=== PATIENT | female | born 1950 | race Caucasian/White ===

== ENCOUNTER 2021-07-21 11:41 | Emergency (ER) | payer MEDICARE, OTHER ==
[~2021-07-21] VITALS: Ht 162.6 cm; Wt 77.3 kg
[2021-07-21] MEDS ORDERED: KETOROLAC TROMETHAMINE 60 MG/2 ML VIAL IM ONE (13:30)
[2021-07-21] MEDS ORDERED: METHOCARBAMOL 500 MG TABLET PO ONE (13:30)
[2021-07-21 14:28] VITALS: BP 120/72
== END 2021-07-21 14:29 | disposition home or self-care (01) ==
LOC: EMS 11:41
DX: M54.5 Low back pain (principal)
CPT/HCPCS: 96372; 99283; J1885